=== PATIENT | female | born 1990 | race African-American/Black ===

== ENCOUNTER 2021-03-30 08:00 | Inpatient (IN) | payer OTHER ==
[2021-03-31 17:34] VITALS: BMI 31.8
[2021-03-31] MEDS ORDERED: CITRIC ACID/SODIUM CITRATE 30 ML UNIT-DOSE CUP PO ONE ×2 (17:47→17:53)
[2021-03-31] MEDS ORDERED: ELECTROLYTE-148 SOLN 500 ML IV ONE (17:47)
[2021-03-31] MEDS ORDERED: morphine SULFATE/PF 0.5 MG/ML (2cc Syringe - QUVA) ONE (18:03)
[2021-03-31] MEDS ORDERED: OXYTOCIN 20 UNITS in 0.9% NS 20 UNIT/1,000 ML INFUS.BAG IV ONE (18:06)
[2021-03-31] MEDS ORDERED: morphine SULFATE/PF 0.5 MG/ML (2cc Syringe - QUVA) EP ONE (19:29)
[2021-03-31] MEDS ORDERED: ACETAMINOPHEN 325 MG TABLET (FP) PO PRN (19:29)
[2021-03-31] MEDS ORDERED: ONDANSETRON 4 MG/2 ML VIAL IVPUSH PRN (19:29)
[2021-03-31] MEDS ORDERED: METHYLERGONOVINE MALEATE 0.2 MG/1 ML AMP IM PRN (19:40)
[2021-03-31] MEDS ORDERED: IBUPROFEN 800 MG/8 ML IJ IVPB PRN (19:40)
[2021-03-31] MEDS ORDERED: oxyCODONE HCL 5 MG TABLET PO PRN (19:40)
[2021-03-31] MEDS ORDERED: IBUPROFEN 600 MG TABLET (FP) PO PRN (19:40)
[2021-03-31 21:24] LABS: BASO % 0.2 % (0-2.0); EOS % 0.2 % (0-4.5); HEMATOCRIT 34.7 % (32.4-45.2); HEMOGLOBIN 11.5 GM/dL (10.7-15.3); LYMPH % 12.7 % (8-40); MCH 28.3 pg (25.7-33.7); MCHC 33.1 g/dl (32.0-36.0); MEAN CELL VOLUME 85.4 fl (80-96); MEAN PLT VOLUME 7.7 fl (7.5-11.1); MONO % 4.1 % (3.8-10.2); NEUT % 82.8 % (42.8-82.8); PLATELET COUNT 244 10^3/uL (134-434); RBC 4.07 M/mm3 (3.60-5.2); RDW 15.8 % (11.6-15.6); WHITE BLOOD COUNT 9.4 K/mm3 (4.0-10.0)
[2021-04-01] MEDS: IBUPROFEN 600 MG TABLET (FP) PO PRN ×3 (10:07→21:14)
[2021-04-01] MEDS: PRENATAL VITAMINS W/ FOLIC ACID TABLET (FP) PO SCH (10:07)
[2021-04-01] MEDS: ACETAMINOPHEN 325 MG TABLET (FP) PO PRN ×2 (10:08→16:26)
[2021-04-01 11:30] LABS: BASO % 0.2 % (0-2.0); EOS % 0.2 % (0-4.5); HEMATOCRIT 29.8 % (32.4-45.2); LYMPH % 17.6 % (8-40); MCHC 33.6 g/dl (32.0-36.0); MEAN CELL VOLUME 86.3 fl (80-96); MEAN PLT VOLUME 8.1 fl (7.5-11.1); MONO % 5.6 % (3.8-10.2); NEUT % 76.4 % (42.8-82.8); PLATELET COUNT 220 10^3/uL (134-434); RBC 3.45 M/mm3 (3.60-5.2); RDW 15.6 % (11.6-15.6); WHITE BLOOD COUNT 10.1 K/mm3 (4.0-10.0)
[2021-04-01] MEDS ORDERED: BISACODYL 10 MG SUPP.RECT RC PRN (19:40)
[2021-04-01] MEDS: SIMETHICONE 80 MG TAB.CHEW (FP) PO PRN (21:13)
[2021-04-01] MEDS: oxyCODONE HCL 5 MG TABLET PO PRN (21:13)
[2021-04-01] MEDS: SENNOSIDES/DOCUSATE COMBO (SENNA PLUS) TABLET (UD) PO PRN (21:13)
[2021-04-02] MEDS: IBUPROFEN 600 MG TABLET (FP) PO PRN ×3 (02:18→20:40)
[2021-04-02] MEDS: SIMETHICONE 80 MG TAB.CHEW (FP) PO PRN ×3 (02:18→20:42)
[2021-04-02] MEDS: oxyCODONE HCL 5 MG TABLET PO PRN ×3 (02:19→20:41)
[2021-04-02] MEDS: PRENATAL VITAMINS W/ FOLIC ACID TABLET (FP) PO SCH (10:44)
[2021-04-02] MEDS: ACETAMINOPHEN 325 MG TABLET (FP) PO PRN ×2 (10:45→20:42)
[2021-04-02] MEDS: SENNOSIDES/DOCUSATE COMBO (SENNA PLUS) TABLET (UD) PO PRN (20:40)
[2021-04-02] MEDS: ELECTROLYTE-148 SOLN 1,000 ML IV SCH ×2 (20:47→20:48)
[2021-04-02] MEDS: OXYTOCIN 20 UNITS in 0.9% NS 20 UNIT/1,000 ML INFUS.BAG IV SCH ×2 (20:47→20:48)
[2021-04-03] MEDS: IBUPROFEN 600 MG TABLET (FP) PO PRN (06:27)
[2021-04-03] MEDS: ACETAMINOPHEN 325 MG TABLET (FP) PO PRN (06:28)
[2021-04-03] MEDS: SIMETHICONE 80 MG TAB.CHEW (FP) PO PRN (06:28)
[2021-04-03] MEDS: oxyCODONE HCL 5 MG TABLET PO PRN (06:29)
[2021-04-03] MEDS: PRENATAL VITAMINS W/ FOLIC ACID TABLET (FP) PO SCH (10:56)
[2021-04-03 12:05] VITALS: BP 98/67; PULSE 97; TEMP 99.1
== END 2021-04-03 13:05 | disposition home or self-care (01) | DRG 788 ==
LOC: JLDR 03-31 16:40 → J3W 03-31 22:32
PROVIDERS: ADMIT Obstetrics & Gynecology; ATTEND Obstetrics & Gynecology
PROC: 10D00Z1 Extraction of Products of Conception, Low, Open Approach (ICD-10-PCS; principal; 2021-03-31)
DX: O44.43 Low lying placenta NOS or without hemorrhage, third trimester (principal); O34.211 Maternal care for low transverse scar from previous cesarean delivery; Z3A.38 38 weeks gestation of pregnancy; Z37.0 Single live birth
CPT/HCPCS: 36415; 85025; 88307-TC